=== PATIENT | female | born 1990 | race Two or more races ===

== ENCOUNTER 2018-01-14 12:59 | Emergency (ER) | payer MEDICAID ==
[~2018-01-14] VITALS: Ht 149.9 cm; Wt 73.0 kg
[2018-01-14 14:52] LABS: BASOPHILS # (AUTO) 0.05 x10^3/uL (0-0.1); BASOPHILS % (AUTO) 1 % (0-1); EOSINOPHILS # (AUTO) 0.54 x10^3/uL (0-0.4); EOSINOPHILS % (AUTO) 9 % (1-7); LYMPHOCYTES # (AUTO) 2.26 x10^3/uL (1-3.4); LYMPHOCYTES % (AUTO) 37 % (22-44); MD NO; MEAN CORPUSCULAR HEMOGLOBIN 26.6 pg (27.0-34.8); MEAN CORPUSCULAR HGB CONC 33.6 g/dL (32.4-35.8); MEAN CORPUSCULAR VOLUME 79.2 fL (80-100); MEAN PLATELET VOLUME 9.2 fL (7.4-10.4); MONOCYTES # (AUTO) 0.34 x10^3/uL (0.2-0.8); MONOCYTES % (AUTO) 6 % (2-9); NEUTROPHILS # (AUTO) 2.91 x10^3/uL (1.8-6.8); NEUTROPHILS % (AUTO) 48 % (42-75); PLATELET COUNT 310 x10^3/uL (130-400); RED BLOOD COUNT 5.01 x10^6/uL (3.82-5.3); RED CELL DISTRIBUTION WIDTH 14.8 % (9.6-15.2)
[2018-01-14 14:59] LABS: ALBUMIN 3.9 g/dL (3.4-5.0); ANION GAP 8 mmol/L (5-15); CALCIUM 8.3 mg/dL (8.5-10.1); CHLORIDE 109 mmol/L (98-107); CREATININE 0.55 mg/dL (0.55-1.02)
[2018-01-14 15:04] LABS: TROPONIN I < 0.015 ng/mL (0.000-0.045)
[2018-01-14 19:13] VITALS: BP 154/72
== END 2018-01-14 19:16 | disposition home or self-care (01) ==
LOC: ED 19:10
DX: R07.9 Chest pain, unspecified (principal); R06.09 Other forms of dyspnea
CPT/HCPCS: 36415; 71046; 80048; 82040; 83880; 84484; 85025; 85379; 93005; 99285

== ENCOUNTER 2018-02-07 15:28 | Emergency (ER) | payer MEDICAID ==
[~2018-02-07] VITALS: Ht 142.2 cm; Wt 73.0 kg
[2018-02-07 16:09] LABS: BASOPHILS # (AUTO) 0.05 x10^3/uL (0-0.1); BASOPHILS % (AUTO) 1 % (0-1); EOSINOPHILS # (AUTO) 0.27 x10^3/uL (0-0.4); EOSINOPHILS % (AUTO) 5 % (1-7); LYMPHOCYTES # (AUTO) 2.07 x10^3/uL (1-3.4); LYMPHOCYTES % (AUTO) 40 % (22-44); MD NO; MEAN CORPUSCULAR HEMOGLOBIN 26.2 pg (27.0-34.8); MEAN CORPUSCULAR HGB CONC 32.9 g/dL (32.4-35.8); MEAN CORPUSCULAR VOLUME 79.8 fL (80-100); MEAN PLATELET VOLUME 9.1 fL (7.4-10.4); MONOCYTES # (AUTO) 0.31 x10^3/uL (0.2-0.8); MONOCYTES % (AUTO) 6 % (2-9); NEUTROPHILS % (AUTO) 48 % (42-75); PLATELET COUNT 348 x10^3/uL (130-400); RED CELL DISTRIBUTION WIDTH 16.1 % (9.6-15.2)
[2018-02-07 16:18] LABS: ALBUMIN 3.8 g/dL (3.4-5.0); ANION GAP 7 mmol/L (5-15); CALCIUM 8.7 mg/dL (8.5-10.1); CHLORIDE 110 mmol/L (98-107)
[2018-02-07 16:25] LABS: ALANINE AMINOTRANSFERASE 106 U/L (12-78); ALKALINE PHOSPHATASE 83 U/L (45-117); BILIRUBIN,TOTAL 0.6 mg/dL (0.2-1.0); CREATININE 0.52 mg/dL (0.55-1.02); TOTAL PROTEIN 7.7 g/dL (6.4-8.2)
[2018-02-07 17:26] VITALS: BP 126/78
== END 2018-02-07 17:29 | disposition home or self-care (01) ==
LOC: ED 16:29
DX: R55 Syncope and collapse (principal); E86.0 Dehydration
CPT/HCPCS: 36415; 80053; 84703; 85025; 93005; 99285

== ENCOUNTER 2018-05-03 19:38 | Emergency (ER) | payer SELFPAY ==
[~2018-05-03] VITALS: Ht 154.9 cm; Wt 70.2 kg
[2018-05-03 20:26] LABS: BASOPHILS # (AUTO) 0.03 x10^3/uL (0-0.1); BASOPHILS % (AUTO) 1 % (0-1); EOSINOPHILS # (AUTO) 0.27 x10^3/uL (0-0.4); EOSINOPHILS % (AUTO) 5 % (1-7); LYMPHOCYTES # (AUTO) 2.23 x10^3/uL (1-3.4); LYMPHOCYTES % (AUTO) 37 % (22-44); MD NO; MEAN CORPUSCULAR HEMOGLOBIN 28.2 pg (27.0-34.8); MEAN CORPUSCULAR HGB CONC 33.6 g/dL (32.4-35.8); MEAN CORPUSCULAR VOLUME 84.1 fL (80-100); MEAN PLATELET VOLUME 9.1 fL (7.4-10.4); MONOCYTES # (AUTO) 0.39 x10^3/uL (0.2-0.8); MONOCYTES % (AUTO) 7 % (2-9); NEUTROPHILS # (AUTO) 3.16 x10^3/uL (1.8-6.8); NEUTROPHILS % (AUTO) 52 % (42-75); PLATELET COUNT 331 x10^3/uL (130-400); RED BLOOD COUNT 5.21 x10^6/uL (3.82-5.3); RED CELL DISTRIBUTION WIDTH 15.5 % (9.6-15.2)
[2018-05-03 20:37] LABS: ALANINE AMINOTRANSFERASE 45 U/L (12-78); ALBUMIN 3.7 g/dL (3.4-5.0); ANION GAP 8 mmol/L (5-15); CALCIUM 9.1 mg/dL (8.5-10.1); CHLORIDE 109 mmol/L (98-107); CREATININE 0.71 mg/dL (0.55-1.02)
[2018-05-03 20:42] LABS: ALKALINE PHOSPHATASE 73 U/L (45-117); BILIRUBIN,TOTAL 0.8 mg/dL (0.2-1.0); TOTAL PROTEIN 7.1 g/dL (6.4-8.2)
[2018-05-03 22:18] LABS: MICROSCOPIC NOT IND
[2018-05-03 22:44] LABS: CULTURE INDICATED? NO
[2018-05-03 23:38] VITALS: BP 105/62
== END 2018-05-03 23:40 | disposition home or self-care (01) ==
LOC: ED 22:34
DX: K64.4 Residual hemorrhoidal skin tags (principal); F20.9 Schizophrenia, unspecified; F31.9 Bipolar disorder, unspecified; K21.9 Gastro-esophageal reflux disease without esophagitis; F41.9 Anxiety disorder, unspecified
CPT/HCPCS: 36415; 80053; 81003; 83690; 84703; 85025; 99284

== ENCOUNTER 2019-10-21 17:58 | Emergency (ER) | payer MEDICAID ==
[~2019-10-21] VITALS: Ht 149.9 cm; Wt 68.2 kg
--- NOTE | 2019-10-21 19:03 | NUR ---
PT TO CT NOW
[2019-10-21] MEDS ORDERED: OMNIPAQUE 350 MG/ML, 75ML BOTTLE ONE (19:22)
[2019-10-21 20:17] VITALS: BP 121/74
== END 2019-10-21 20:19 | disposition home or self-care (01) ==
LOC: ED 20:10
DX: K04.7 Periapical abscess without sinus (principal); K21.9 Gastro-esophageal reflux disease without esophagitis
CPT/HCPCS: 70487; 99284; Q9967

== ENCOUNTER 2020-01-03 13:00 | Emergency (ER) | payer MEDICAID ==
[~2020-01-03] VITALS: Ht 149.9 cm; Wt 68.4 kg
--- NOTE | 2020-01-03 13:52 | NUR ---
PT TO ROOM AT THIS TIME.
--- NOTE | 2020-01-03 14:17 | NUR ---
THIS RN BEDSIDE DURING PELVIC EXAM PROCEDURE PERFORMED BY JOCELYN. PT TOLERATED WITH NO COMPLICATIONS
[2020-01-03 14:29] LABS: MICROSCOPIC INDICATED
[2020-01-03 14:39] LABS: CULTURE INDICATED? YES
[2020-01-03 15:07] VITALS: BP 100/59
--- NOTE | 2020-01-03 15:07 | NUR ---
Patient/Caregiver given discharge instructions and they have confirmed that they understand the instructions. Patient ambulatory with steady gait. PT LEFT WITH ALL PERSONAL BELONGINGS.
== END 2020-01-03 15:19 | disposition home or self-care (01) ==
LOC: ED 15:15
DX: N30.00 Acute cystitis without hematuria (principal); K21.9 Gastro-esophageal reflux disease without esophagitis
CPT/HCPCS: 81001; 87077; 87086; 87147; 87186; 99283

== ENCOUNTER 2020-06-10 16:57 | Emergency (ER) | payer MEDICAID ==
[~2020-06-10] VITALS: Ht 149.9 cm; Wt 67.4 kg
[2020-06-10 18:00] LABS: BASOPHILS # (AUTO) 0.03 x10^3/uL (0-0.1); BASOPHILS % (AUTO) 1 % (0-1); EOSINOPHILS # (AUTO) 0.12 x10^3/uL (0-0.4); EOSINOPHILS % (AUTO) 2 % (1-7); LYMPHOCYTES # (AUTO) 2.22 x10^3/uL (1-3.4); LYMPHOCYTES % (AUTO) 40 % (22-44); MD NO; MEAN CORPUSCULAR HEMOGLOBIN 31.1 pg (27.0-34.8); MEAN CORPUSCULAR HGB CONC 34.3 g/dL (32.4-35.8); MEAN CORPUSCULAR VOLUME 90.7 fL (80-100); MEAN PLATELET VOLUME 10.8 fL (7.4-10.4); MONOCYTES # (AUTO) 0.34 x10^3/uL (0.2-0.8); MONOCYTES % (AUTO) 6 % (2-9); NEUTROPHILS # (AUTO) 2.92 x10^3/uL (1.8-6.8); NEUTROPHILS % (AUTO) 52 % (42-75); PLATELET COUNT 246 x10^3/uL (130-400); RED BLOOD COUNT 5.12 x10^6/uL (3.82-5.3); RED CELL DISTRIBUTION WIDTH 11.9 % (9.6-15.2)
[2020-06-10 18:04] LABS: ALBUMIN 3.8 g/dL (3.4-5.0); ANION GAP 7 mmol/L (5-15); CALCIUM 9.3 mg/dL (8.5-10.1); CHLORIDE 104 mmol/L (98-107)
--- NOTE | 2020-06-10 18:04 | NUR ---
UA SENT PER ORDERS. PT AWAITING ALL RESULTS. WILL FOLLOW ORDERS.
[2020-06-10 18:08] LABS: ALANINE AMINOTRANSFERASE 72 U/L (12-78); ALKALINE PHOSPHATASE 85 U/L (45-117); BILIRUBIN,TOTAL 0.7 mg/dL (0.2-1.0); CREATININE 0.75 mg/dL (0.55-1.02)
[2020-06-10 18:08] LABS: MICROSCOPIC NOT IND
--- NOTE | 2020-06-10 18:59 | NUR ---
PER ER PA-C, ERMD TO EVALUATE THEN PT TO BE D/C.
--- NOTE | 2020-06-10 19:52 | NUR ---
PT D/C'D PER ORDERS. HAS ALL OWN BELONGINGS UPON D/C. VERBALIZED UNDERSTANDING OF D/C INSTRUCTIONS.
[2020-06-10 19:53] VITALS: BP 139/84
== END 2020-06-10 19:55 | disposition home or self-care (01) ==
LOC: ED 18:24
DX: M79.662 Pain in left lower leg (principal); M79.661 Pain in right lower leg; E11.9 Type 2 diabetes mellitus without complications
CPT/HCPCS: 36415; 72110; 80053; 81003; 85025; 99284

== ENCOUNTER 2020-06-20 19:21 | Emergency (ER) | payer MEDICAID ==
[~2020-06-20] VITALS: Ht 149.9 cm; Wt 66.8 kg
[2020-06-20 19:25] VITALS: BP 119/88
[2020-06-20] MEDS ORDERED: KETOROLAC 60 MG/2 ML IM ONE (20:00)
[2020-06-20] MEDS ORDERED: DIAZEPAM 5 MG/ML, 2ML IM ONE (20:00)
--- NOTE | 2020-06-20 20:02 | NUR ---
PT TO IMAGING AT THIS TIME.
[2020-06-20] MEDS ORDERED: DIAZEPAM 5 MG/ML, 2ML ONE (20:26)
[2020-06-20] MEDS ORDERED: KETOROLAC 60 MG/2 ML ONE (20:26)
== END 2020-06-20 21:21 ==
LOC: ED 21:15
DX: M54.5 Low back pain (principal); M54.6 Pain in thoracic spine; K21.9 Gastro-esophageal reflux disease without esophagitis; E11.65 Type 2 diabetes mellitus with hyperglycemia
CPT/HCPCS: 72131; 96372; 99284; J1885; J3360

== ENCOUNTER 2021-04-01 06:10 | Emergency (ER) | payer MEDICAID ==
[~2021-04-01] VITALS: Ht 149.9 cm; Wt 66.0 kg
[2021-04-01] MEDS ORDERED: ACETAMINOPHEN 325 MG TABLET PO ONE (06:30)
--- NOTE | 2021-04-01 06:46 | NUR ---
PT AMBULATORY WITH STEADY GAIT WITH THIS RN TO BATHROOM TO PROVIDE URINE SAMPLE.
--- NOTE | 2021-04-01 06:47 | NUR ---
REPORT TO GLORIA LOYA AND JAY LOYA
[2021-04-01 07:01] LABS: BASOPHILS % (AUTO) 1 % (0-1); EOSINOPHILS % (AUTO) 1 % (1-7); LYMPHOCYTES % (AUTO) 14 % (22-44); MEAN CORPUSCULAR HEMOGLOBIN 31.5 pg (27.0-34.8); MEAN CORPUSCULAR HGB CONC 35.1 g/dL (32.4-35.8); MEAN PLATELET VOLUME 9.8 fL (7.4-10.4); MONOCYTES % (AUTO) 5 % (2-9); NEUTROPHILS % (AUTO) 80 % (42-75); PLATELET COUNT 221 x10^3/uL (130-400); RED BLOOD COUNT 4.92 x10^6/uL (3.82-5.3); RED CELL DISTRIBUTION WIDTH 12.2 % (9.6-15.2)
[2021-04-01] MEDS ORDERED: ACETAMINOPHEN 325 MG TABLET ONE (07:02)
[2021-04-01 07:03] LABS: MD NO
[2021-04-01 07:06] LABS: MICROSCOPIC INDICATED
[2021-04-01 07:12] LABS: ALANINE AMINOTRANSFERASE 108 U/L (12-78); ALBUMIN 3.6 g/dL (3.4-5.0); ANION GAP 7 mmol/L (5-15); CALCIUM 8.4 mg/dL (8.5-10.1); CHLORIDE 105 mmol/L (98-107); CREATININE 0.55 mg/dL (0.55-1.02)
[2021-04-01 07:16] LABS: ALKALINE PHOSPHATASE 88 U/L (45-117); BILIRUBIN,TOTAL 0.8 mg/dL (0.2-1.0); TOTAL PROTEIN 7.4 g/dL (6.4-8.2)
--- NOTE | 2021-04-01 07:40 | NUR ---
PT RESTING IN BED. PT A&O, RESPS EVEN AND UNLABORED, VSS, NADN. PT C/O 08/05 HEADACHE. MEDICATED PER ORDER, TOLERATED WELL. CALL LIGHT IN REACH.
[2021-04-01 07:56] VITALS: BP 100/59
--- NOTE | 2021-04-01 07:57 | NUR ---
Patient given discharge instructions and work note and they have confirmed that they understand the instructions. Patient stable and ambulatory with steady gait from ED with friend to private vehicle.
== END 2021-04-01 07:58 | disposition home or self-care (01) ==
LOC: ED 07:52
DX: E10.65 Type 1 diabetes mellitus with hyperglycemia (principal); R07.89 Other chest pain
CPT/HCPCS: 36415; 71045; 80053; 81001; 84703; 85025; 87086; 87147; 93005; 99285

== ENCOUNTER 2021-06-25 02:32 | Emergency (ER) | payer MEDICAID ==
[~2021-06-25] VITALS: Ht 149.9 cm; Wt 65.3 kg
[2021-06-25 02:35] VITALS: BP 127/86
--- NOTE | 2021-06-25 03:56 | NUR ---
PT WHEELED TO ROOM. A&OX4. C/O PAIN TO RIGHT FOOT LAST 3 TOES ON THAT FOOT. NO SWELLING NOTED, BUT MILD REDNESS. PT WITH DIFFICULTY MOVING RIGHT FOOT AND TOES. MD TO BEDSIDE TO EVAL PT, AND ORDERS RECEIVED.
--- NOTE | 2021-06-25 04:08 | NUR ---
XRAY TO ROOM TO COMPLETE XRAY. PT TOLERATED WELL.
--- NOTE | 2021-06-25 05:12 | NUR ---
REPORT AND CARE TO ARINA LOYA.
== END 2021-06-25 05:50 | disposition home or self-care (01) ==
LOC: ED 05:20
DX: G89.11 Acute pain due to trauma (principal); M79.671 Pain in right foot; I10 Essential (primary) hypertension; E11.65 Type 2 diabetes mellitus with hyperglycemia; X58.XXXA Exposure to other specified factors, initial encounter; Y93.89 Activity, other specified; Y92.89 Other specified places as the place of occurrence of the external cause; Y99.8 Other external cause status
CPT/HCPCS: 99283

== ENCOUNTER 2021-07-21 17:40 | Emergency (ER) | payer MEDICAID ==
[~2021-07-21] VITALS: Ht 149.9 cm; Wt 65.1 kg
--- NOTE | 2021-07-21 20:00 | NUR ---
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
[2021-07-21] MEDS ORDERED: ACETAMINOPHEN 500 MG TABLET ONE (20:19)
[2021-07-21] MEDS ORDERED: ACETAMINOPHEN 500 MG TABLET PO ONE (20:30)
[2021-07-21 20:34] VITALS: BP 125/87
--- NOTE | 2021-07-21 20:40 | NUR ---
LAB/CXR AT BEDSIDE
[2021-07-21 21:29] LABS: MICROSCOPIC INDICATED
--- NOTE | 2021-07-21 21:34 | NUR ---
lab called to expedite processing of samples
[2021-07-21 21:40] LABS: BASOPHILS % (AUTO) 0 % (0-1); EOSINOPHILS % (AUTO) 2 % (1-7); LYMPHOCYTES % (AUTO) 24 % (22-44); MEAN CORPUSCULAR HEMOGLOBIN 27.3 pg (27.0-34.8); MEAN CORPUSCULAR HGB CONC 33.2 g/dL (32.4-35.8); MEAN PLATELET VOLUME 9.9 fL (7.4-10.4); MONOCYTES % (AUTO) 11 % (2-9); NEUTROPHILS % (AUTO) 62 % (42-75); PLATELET COUNT 300 x10^3/uL (130-400); RED BLOOD COUNT 4.79 x10^6/uL (3.82-5.3)
[2021-07-21 21:52] LABS: ALBUMIN 3.4 g/dL (3.4-5.0); ANION GAP 6 mmol/L (5-15); CALCIUM 8.4 mg/dL (8.5-10.1); CHLORIDE 103 mmol/L (98-107); CREATININE 0.59 mg/dL (0.55-1.02)
--- NOTE | 2021-07-21 22:13 | NUR ---
ERP COLLECTED COVID SWAB-REVIEWED POC WITH PATIENT
== END 2021-07-21 22:26 | disposition home or self-care (01) ==
LOC: ED 20:50
DX: U07.1 COVID-19 (principal); J15.9 Unspecified bacterial pneumonia; E11.65 Type 2 diabetes mellitus with hyperglycemia; R94.31 Abnormal electrocardiogram [ECG] [EKG]; I10 Essential (primary) hypertension; K21.9 Gastro-esophageal reflux disease without esophagitis
CPT/HCPCS: 36415; 71045; 80048; 81001; 82040; 85025; 87086; 87147; 93005; 99285; U0003

== ENCOUNTER 2021-08-05 16:43 | Emergency (ER) | payer MEDICAID ==
[2021-08-05 17:06] VITALS: BP 111/83
[2021-08-05 18:30] LABS: BASOPHILS % (AUTO) 0 % (0-1); EOSINOPHILS % (AUTO) 3 % (1-7); LYMPHOCYTES % (AUTO) 41 % (22-44); MEAN CORPUSCULAR HEMOGLOBIN 26.7 pg (27.0-34.8); MEAN CORPUSCULAR HGB CONC 33.4 g/dL (32.4-35.8); MEAN PLATELET VOLUME 9.9 fL (7.4-10.4); MONOCYTES % (AUTO) 7 % (2-9); NEUTROPHILS % (AUTO) 49 % (42-75); PLATELET COUNT 328 x10^3/uL (130-400); RED CELL DISTRIBUTION WIDTH 14.3 % (9.6-15.2)
[2021-08-05 18:38] LABS: ALBUMIN 3.5 g/dL (3.4-5.0); ANION GAP 5 mmol/L (5-15); CALCIUM 8.9 mg/dL (8.5-10.1); CHLORIDE 104 mmol/L (98-107); CREATININE 0.64 mg/dL (0.55-1.02)
--- NOTE | 2021-08-06 00:08 | NUR ---
PT AGREES WITH NOT PROVIDING URINE AND PT ALSO AGREES WITH D/C FROM TRIAGE. ERP WITH PT IN TRIAGE
--- NOTE | 2021-08-06 00:17 | NUR ---
Patient/Caregiver given discharge instructions and they have confirmed that they understand the instructions. Patient ambulatory with steady gait.
== END 2021-08-06 00:40 | disposition home or self-care (01) ==
LOC: ED 17:00
DX: J15.9 Unspecified bacterial pneumonia (principal); R07.2 Precordial pain; R06.00 Dyspnea, unspecified; R94.31 Abnormal electrocardiogram [ECG] [EKG]; K21.9 Gastro-esophageal reflux disease without esophagitis; I10 Essential (primary) hypertension; E11.9 Type 2 diabetes mellitus without complications
CPT/HCPCS: 36415; 71045; 80048; 82040; 84703; 85025; 93005; 99285